=== PATIENT | male | born 1995 | race Caucasian/White ===

== ENCOUNTER 2017-12-08 21:35 | Emergency (ER) | END 2017-12-09 00:53 | disposition home or self-care (01) ==

== ENCOUNTER 2018-03-29 14:43 | Emergency (ER) | END 2018-03-29 15:34 | disposition left against medical advice (07) ==

== ENCOUNTER 2018-05-04 02:39 | Emergency (ER) | END 2018-05-04 05:24 | disposition home or self-care (01) ==